=== PATIENT | male | born 1945 | race Caucasian/White ===

== ENCOUNTER → 2016-12-26 | Outpatient (CLI) | payer MEDICARE, BC ==
[~2016-12-26] MED LIST: ALBUTEROL17 GM INH; ALDACTONE25 MG PO; APRESOLINE PO; BYSTOLIC10 MG PO; CLONIDINE PO; FLUOXETINE HCL20 M1 PO; GLUCOTROL PO; HYDROCHLOROTHIA25 MG PO; ISORDIL PO; KCL PO; LANTUS100 U/ML SUBQ; LASIX PO; NOVOLOG100 U/M1 SUBQ; ONGLYZA5 MG PO; PRAVASTATIN SOD40 MG PO; PREDNISONE PO; PRINIVIL20 M1 PO; TRADJENTA5 MG PO; TYLENOL325 M1 PO
--- NOTE | ~2016-12-26 | US77 ---
[facility] A Service of [facility] / [facility] RADIOLOGY TEXT RESULTS PATIENT: DYLAN ARNOLD LOCATION: CNIV : 49 UNIT #: [id number] AGE: [address]: Annalise Cherry MD SEX: M ORDER DR: [id number] [facility] [address] [place], [place] [address] [id number] O MR#: [id number] Acc #: [id number] NAME: DYLAN ARNOLD : 1945 SEX: M STUDY DATE/TIME: 12/26/2016 9:53 UNIT: CNIV ROOM: STUDY DESCRIPTION: US Kidney Bilateral Complete Attending Physician: Luis Cherry M.D. Referring Physician: Luis Cherry M.D. Ordering Physician: Luis Cherry M.D. Primary Care Physician: Trell Orta M.D. MEDICAL IMAGING REPORT This report is preliminary unless electronic signature is present EXAM Renal ultrasound bilateral 12/26/2016 INDICATIONS Chronic renal disease (stage III). 71-year-old male. TECHNIQUE Sonographic imaging of the kidneys was performed bilaterally. COMPARISON We have no comparisons. FINDINGS The left kidney measures 12.6 cm long axis and the right kidney measures 13.1 cm. No shadowing stone or hydronephrosis on either side. Mild cortical thinning bilaterally which can be seen in the setting of chronic renal parenchymal disease. Bladder unremarkable. Probable mild fatty infiltration of the liver. IMPRESSION Findings that would be in keeping with report history of chronic renal parenchymal disease, but no hydronephrosis or shadowing stone on either side. Dictated by... Israel Cannon M.D. THIS IS AN ELECTRONICALLY VERIFIED REPORT Israel Cannon M.D. at 12/27/2016 7:18 AM Kapil TD: 12/26/2016 14:25 [facility] A Service [facility] RADIOLOGY TEXT RESULTS PATIENT: DYLAN ARNOLD LOCATION: CNIV : 49 UNIT #: [id number] AGE: [address]: Annalise Cherry MD SEX: M ORDER DR: JOB #: [id number] MEDICAL IMAGING REPORT Page 1 of 1 COPY
--- NOTE | ~2016-12-26 | US78 ---
[facility] A Service of [facility] RADIOLOGY TEXT RESULTS PATIENT: DYLAN ARNOLD LOCATION: CNIV : [birth year] UNIT #: [id number] AGE: [address]: Annalise Cherry MD SEX: M ORDER DR: [id number] [facility] [address] [place], [place] [address] [id number] O MR#: [id number] Acc #: [id number] NAME: DYLAN ARNOLD : 1945 SEX: M STUDY DATE/TIME: 12/26/2016 9:28 UNIT: CNIV ROOM: STUDY DESCRIPTION: US Kidney Duplex Complete Attending Physician: Luis Cherry M.D. Referring Physician: Luis Cherry M.D. Ordering Physician: Luis Cherry M.D. Primary Care Physician: Trell Orta M.D. MEDICAL IMAGING REPORT This report is preliminary unless electronic signature is present EXAM Renal Doppler. INDICATION Hypertension for 15 years. Patient does require medication for his hypertension. TECHNIQUE Jean-scale color Doppler and spectral waveform analysis was performed through the aorta and renal arteries. FINDINGS Both kidneys are normal in appearance and the jean scale images, renal artery velocities on the right are within normal limits. Measuring 176 cm sec proximally, 81 cm/sec within the midportion and 60 cm/sec within the distal aspect. Waveforms appear well preserved. The left renal artery velocities range from 160 cm/sec proximally, 141 cm/sec within the midportion and 75 cm/sec distally. The patient's renal artery to aortic ratio on the right is 1.6 and on the left is 1.5. IMPRESSION Normal renal artery velocities as well as the renal artery to aortic ratios. No convincing evidence of hemodynamically significant renal artery stenosis. Dictated by... Unique Stack M.D. THIS IS AN ELECTRONICALLY VERIFIED REPORT Unique Stack M.D. at 12/27/2016 4:58 PM AFF/ea [facility] A Service of [facility] RADIOLOGY TEXT RESULTS PATIENT: DYLAN ARNOLD LOCATION: CNIV : [birth year] UNIT #: [id number] AGE: [address]: Annalise Cherry MD SEX: M ORDER DR: TD: 12/26/2016 19:51 JOB #: [id number] MEDICAL IMAGING REPORT Page 1 of 1 COPY
== END | disposition home or self-care (01) ==
LOC: CWCC 12-24 13:15 → CNIV 08:55
DX: I12.9 Hypertensive chronic kidney disease with stage 1 through stage 4 chronic kidney disease, or unspecified chronic kidney disease (principal); N18.3 Chronic kidney disease, stage 3 (moderate)
CPT/HCPCS: 76770; 93975

== ENCOUNTER → 2017-01-03 | Outpatient (CLI) | payer MEDICARE, BC ==
[2017-01-03 09:57] LABS: URINE APPEARANCE CLEAR; URINE BILIRUBIN NEG (NEG); URINE BLOOD NEG (NEG); URINE COLOR YELLOW; URINE GLUCOSE 250 MG/DL (NEG); URINE KETONE NEG (NEG); URINE LEUKOCYTE ESTERASE NEG (NEG); URINE NITRATE NEG (NEG); URINE PROTEIN 2+ (NEG); URINE SPECIFIC GRAVITY 1.012 (1.003-1.035); URINE UROBILINOGEN 0.2 MG/DL (NEG)
[2017-01-03 09:59] LABS: URBCS1 AUWI 0-2 /[HPF] (0-2); URINE BACTERIA AUWI NEG (NEGATIVE); URINE SQUAMOUS EPITHELIAL CELL NONE SEEN /[HPF]; UWBCS1 AUWI 0-2 (0-5)
[2017-01-03 10:30] LABS: CREATININE,RANDOM URINE 46 mg/dL; TOTAL PROTEIN,RANDOM URINE 61 mg/dl (<10)
[2017-01-03 11:07] LABS: ALBUMIN SERUM 3.8 g/dL (3.5-5.0); BILIRUBIN,TOTAL 0.5 mg/dL (0.2-2.0); BUN/CREATININE RATIO 16.36; CREATININE SERUM 1.1 mg/dL (0.6-1.4); GLOM FILT RATE Estimated 68.1 mL/min (>60); POTASSIUM 3.1 mmol/L (3.5-5.1); PROTEIN TOTAL SERUM 6.8 g/dL (6.0-8.3); URIC ACID 4.8 mg/dL (2.6-7.2)
[2017-01-06 00:25] LABS: COMPLEMENT C3 147 mg/dL (90-180); COMPLEMENT C4 30 mg/dL (16-47)
[2017-01-10 12:32] LABS: ANA SCREEN Positive (Negative); ANA TITER COMMENT Has been added (()); HEP C AB (HEPPAN) Nonreactive (Nonreactive); HEP C AB SIGNAL TO CUTOFF 0.08 ratio (<1.00); NUCLEAR PATTERN (ANA) Homogeneous (())
== END | disposition home or self-care (01) ==
LOC: CLAB 08:57
PROVIDERS: Internal Medicine Nephrology
DX: I12.9 Hypertensive chronic kidney disease with stage 1 through stage 4 chronic kidney disease, or unspecified chronic kidney disease (principal); N18.3 Chronic kidney disease, stage 3 (moderate); E87.6 Hypokalemia
CPT/HCPCS: 36415; 80053; 81003; 82085; 82550; 82570; 84156; 84244; 84443; 84550; 86038; 86039; 86160; 86334; 86803